=== PATIENT | male | born 1945 | race African-American/Black ===

== ENCOUNTER 2019-03-05 08:48 | Inpatient (IN) | payer OTHER ==
[2019-03-05] VITALS (8 sets, daily range): BP systolic 125–171; BP diastolic 65–83
[~2019-03-05] VITALS: Ht 185.4 cm; Wt 71.3 kg
--- NOTE | ~2019-03-05 | HC ---
[facility] [place] [address] CONSULTATION Name: AMOS SESAY Room #: 461-P [facility] IN M.R.#: [id number] Admission: 03/05/19 ������������������ Attend Phys: Oseas Lopez Discharge: 03/09/19 ������������������ Date of : 45 Report #: [id number] THIS REPORT FOR: //name// CC: FAM unknown Oseas Holt MD REQUESTING PHYSICIANS: Oseas Lopez MD and Cecil Holt MD CHIEF COMPLAINT: Hepatocellular carcinoma. HISTORY OF PRESENT ILLNESS: The patient initially presented to [facility] with altered mentation and GI bleed. The patient subsequently had an EGD confirming variceal bleeding and has had clipping to these. He did have a CT scan, which showed likely multifocal hepatocellular carcinoma. His AFP level was 28,000 as well. He has been seen by Oncology and unfortunately the patient is not an excellent candidate for treatment at this time. The patient's family has already discussed significantly and wished to pursue hospice. They are looking into long-term cares at this time, wished to discuss this with case management. The patient appears to be relatively comfortable currently according to nursing staff, although they do think that he may benefit from increased dosing of the pain medication that he has received. PAST MEDICAL HISTORY: Gastrointestinal bleed, esophageal varices, possible hepatocellular carcinoma, history of substance abuse, hepatitis C. MEDICATIONS: Thiamin, folate, B12, Protonix, octreotide, Ambien. ALLERGIES: No known drug allergies. FAMILY HISTORY: Noncontributory. SOCIAL HISTORY: Two daughters at least are present at my interview currently. REVIEW OF SYSTEMS: Unable to obtain due to present medical condition. PHYSICAL EXAMINATION: VITAL SIGNS: Temperature 36.6, pulse 91, respirations 20, blood pressure 138/76, 99% on room air. GENERAL: The patient only alerts to some stimuli, appears to be confused. Verbal responses are garbled at this time. CARDIOVASCULAR: Regular rate and rhythm currently. RESPIRATORY: Appears to be clear to auscultation anteriorly at least. ABDOMEN: Soft, mild distention. Diminished bowel sounds noted. LABORATORY DATA: Reviewed including AFP of 28,000. INR 1.2. [address] [address] CONSULTATION Name: AMOS SESAY Room #: 461-P [facility] IN M.R.#: [id number] Admission: 03/05/19 ������������������ Attend Phys: Oseas Lopez Discharge: 03/09/19 ������������������ Date of : 45 Report #: [id number] ASSESSMENT AND PLAN: Likely hepatocellular carcinoma. At this time, I have reviewed the consultation of Oncology and agree with their assessments. Certainly, if the patient is not to be an excellent candidate for any kind of treatment and given his other medical conditions, family has already desired to pursue a hospice or palliative care route, actually hospice exclusively, and they are looking into long-term cares currently. We will await their decision on long-term care placement. I did increase the hydrocodone to 7.5 mg every 4 hours p.r.n. Otherwise, he appears to be relatively comfortable at this time. Please contact me further if there are any questions regarding this consult or any further advice needed; however, it certainly appears that they have had significant discussion with regards to the plan going forward. ��������������������������������������������� ���������������������������������������� By: ��������������������������������������������� [id number] Josh Sorensen DO /nt
--- NOTE | ~2019-03-05 | HC ---
[facility] [place] [address] CONSULTATION Name: AMOS SESAY Room #: 212-P AD[facility] IN M.R.#: [id number] Admission: 03/05/19 ������������������ Attend Phys: Oseas Lopez Discharge: ������������������ Date of : 45 Report #: [id number] THIS REPORT FOR: //name// CC: FAM unknown Oseas Lopez DATE OF SERVICE: 03/05/2019 REASON FOR CONSULTATION: Elevated creatinine. REASON FOR PRESENTATION: Hematemesis. HISTORY OF PRESENT ILLNESS: A 73-year-old with extensive past medical history including hypertension, cirrhosis of the liver. No known previous kidney problems. He presented reporting hematemesis and melena. This was associated with abdominal pain. This has resulted in significant anemia on his presentation. His hemoglobin was 4.9. Apparently, the patient carries the diagnosis of cirrhosis of the liver. He sees somebody at the NH, but he had lost to follow up. When he presented yesterday, he was found to have significant ascites, anemia, liver masses, creatinine of 2.3. He also admits to ongoing marijuana usage, meth abuse, Vicodin, continuing alcohol abuse. He does not know of any previous kidney problems. I am being consulted to manage his kidney issues. Listed amongst his outpatient medication is meloxicam. MEDICATIONS: 1. Amlodipine. 2. Vitamin D. 3. Gabapentin. 4. Meloxicam. 5. Mirtazapine. 6. Paroxetine. PAST MEDICAL HISTORY: 1. Cirrhosis with all of its complications. 2. Hypertension. 3. Bipolar. 4. Substance abuse. FAMILY HISTORY: 1. Hypertension. 2. Smoking, significant for alcohol heavy abuse. 3. Drug abuse, positive for marijuana and meth. ALLERGIES: None. REVIEW OF SYSTEMS: [facility] [address] [place] [address] CONSULTATION Name: AMOS SESAY Room #: 212-P [facility] IN M.R.#: [id number] Admission: 03/05/19 ������������������ Attend Phys: Oseas Lopez Discharge: ������������������ Date of : 45 Report #: [id number] GENERAL: No fever or chills. He lost his appetite. CARDIOVASCULAR: No chest pain or palpitation. PULMONARY: No cough or hemoptysis. GASTROINTESTINAL: Significant for melena and hematemesis and abdominal pain and distention. MUSCULOSKELETAL: No back pain, no muscle pain. NEUROLOGICAL: No numbness, no tingling, no syncope. SKIN: No rash or ulcerations. HEMATOLOGICAL: No easy bruisability, no bleeding. PHYSICAL EXAMINATION: GENERAL: Thin, cachectic, emaciated. VITAL SIGNS: Blood pressure 141/81, temperature 36.9. HEAD AND NECK: No jugular venous distention. CHEST: Decreased air entry bilaterally. CARDIOVASCULAR: No rub detected. ABDOMEN: Distended. LOWER EXTREMITIES: No edema. LABORATORY VALUES: From yesterday revealed a sodium of 135, potassium of 3.4. AST is 557, ALT is 185. Creatinine was 2.3. Abdominal and pelvic CT revealed no obstructions, but significant cirrhosis and other findings as dictated. He has a large left renal cyst with small nonobstructing renal calculi. ASSESSMENT, IMPRESSION AND PLAN: 1. Acute kidney injury. 2. Ongoing liver issues including cirrhosis, substance abuse. 3. Gastrointestinal bleeding. 4. Ongoing liver mass issues on the CT. 5. We will send the appropriate acute kidney injury workup. 6. GI is following. 7. Continue IV fluid. 8. Watch hemoglobin. 9. Rule out obstructive uropathy. 10. Hold on any nephrotoxic medications and contrast for now. 11. We will see where his kidney numbers are going to stabilize. ��������������������������������������������� ���������������������������������������� By: ��������������������������������������������� [id number] Matthias Dalton MD /nt
[2019-03-05 09:16] LABS: MCH 32.8 pg (26.0-34.0); MCHC 32.1 g/dL (28.0-37.0); MCV 102.3 fL (80.0-100.0); PLATELET COUNT 181 thou/uL (150-400); RBC 1.48 mil/uL (4.50-6.00); RDW 23.4 % (10.5-14.5)
[2019-03-05 09:17] LABS: CALCIUM 8.4 mg/dL (8.5-10.1); CREATININE 2.3 mg/dL (0.7-1.3); POTASSIUM 3.4 mmol/L (3.5-5.1)
--- NOTE | 2019-03-05 09:23 | NUR ---
PT IS POIOIR HISTORIAN. VERBAL CONSENT BY PT TO OBTAIN MEDICAL RECORDS FROM CT. RELEASE FAXED.
[2019-03-05 09:25] LABS: HEMOGLOBIN 4.9 gm/dL (14.0-18.0)
[2019-03-05 09:26] LABS: HEMATOCRIT 15.2 % (42.0-52.0)
[2019-03-05 09:29] LABS: URINE BILIRUBIN NEGATIVE (Negative); URINE BLOOD NEGATIVE (Negative); URINE CLARITY CLEAR; URINE COLOR YELLOW; URINE GLUCOSE-RANDOM* NEGATIVE (Negative); URINE KETONES NEGATIVE (Negative); URINE LEUKOCYTES-REFLEX NEGATIVE (Negative); URINE NITRITE-REFLEX NEGATIVE (Negative); URINE PROTEIN (DIPSTICK) NEGATIVE (Negative); URINE SPECIFIC GRAVITY 1.015 (1.005-1.035)
[2019-03-05 09:31] LABS: ALBUMIN 1.7 g/dL (3.4-5.0); DIRECT BILIRUBIN 3.2 mg/dL (<0.1-0.3); TOTAL BILIRUBIN 5.1 mg/dL (<0.1-1.0); TOTAL PROTEIN 7.4 g/dL (6.4-8.2)
[2019-03-05 10:06] LABS: APTT 32.6 Seconds (24.5-32.8); INR 1.5; PROTIME 15.6 Seconds (9.3-11.4)
[2019-03-05 10:15] LABS: ABSOLUTE NEUTROPHILS 11.5 thou/uL (1.4-8.2); NUCLEATED RBCS 1 /100WBC; PLATELET ESTIMATE NORMAL
[2019-03-05 10:16] LABS: ANISOCYTOSIS 2+; HYPOCHROMASIA 2+; POLYCHROMASIA 1+
[2019-03-05 11:39] LABS: % SATURATION 13 % (20-39); IRON 29 ug/dL (65-175); TIBC 216 ug/dL (250-450)
[2019-03-05] MEDS ORDERED: TYLENOL EXTRA500 MG PO (11:51)
[2019-03-05] MEDS ORDERED: NORVASC10 MG PO (11:53)
[2019-03-05] MEDS ORDERED: CARVEDILOL12.5 MG PO (11:53)
[2019-03-05] MEDS ORDERED: VITAMIN D1000 UNI1 PO (11:54)
[2019-03-05] MEDS ORDERED: NEURONTIN 300M300 M2 PO (11:56)
[2019-03-05] MEDS ORDERED: HYDROCHLOROTHIA25 M2 PO (11:56)
[2019-03-05] MEDS ORDERED: MOBIC15 MG PO (11:56)
[2019-03-05] MEDS ORDERED: OMEPRAZOLE 20 M20 M1 PO (11:57)
[2019-03-05] MEDS ORDERED: REMERON15 MG PO (11:57)
[2019-03-05] MEDS ORDERED: FLOMAX0.4 MG PO (11:58)
[2019-03-05] MEDS ORDERED: PAXIL10 MG PO (11:58)
--- NOTE | 2019-03-05 13:38 | NUR ---
PT TO GI LAB
[2019-03-05 14:29] LABS: HEMATOCRIT 20.8 % (42.0-52.0)
[2019-03-05 14:30] LABS: HEMOGLOBIN 7.2 gm/dL (14.0-18.0)
--- NOTE | 2019-03-05 14:42 | NUR ---
PT TO GO TO INPT BED FROM GI LAB. REPORT GIVEN AND GI NOTIFIED.
--- NOTE | 2019-03-05 17:57 | NUR ---
PT ADMITED FROM GI LAB. ADMISSION HX AND ASSESSMENT COMPLETED. VSS. PT ORIENTED TO THE ROOM AND THE CALL LIGHT SYSTEM. FALL PRECAUTION IMPLEMENTED. WILL CONTINUE TO MONITOR.
[2019-03-05 19:07] LABS: IgG 2415 mg/dL (700-1600)
[2019-03-05 23:05] LABS: HAV IgM AB (ANTI-HAV IgM) Negative (Negative); HEPATITIS B SURFACE AG Negative (Negative); HEPATITIS C VIRUS AB >11.0 (0.0-0.9)
[2019-03-06] VITALS: BP 159/82
--- NOTE | 2019-03-06 04:50 | NUR ---
ASSUMED PT CARE AT 1900. PT A/O TO SELF, PLACE AND OCCASIONALLY TO SITUATION. NO COMPLAINTS OF PAIN THROUGH OUT SHIFT. VITAL SIGN STABLE, ASSESSMENT CHARTED. FREQUENT CHECKS, FALL PRECAUTIONS MAINTAINED. PT A BIT RESTLESS THROUGH THE NIGHT. NO ACUTE CHANGES THROUGH THE NIGHT. PROGRESSING TOWARD PLAN OF CARE, WILL CONTINUE TO MONITOR.
[2019-03-06 05:26] VITALS: BP 155/81
[2019-03-06 05:38] LABS: HEMATOCRIT 20.6 % (42.0-52.0); MCH 32.7 pg (26.0-34.0); MCHC 33.9 g/dL (28.0-37.0); RBC 2.14 mil/uL (4.50-6.00); RDW 22.4 % (10.5-14.5)
[2019-03-06 05:45] LABS: MCV 96.5 fL (80.0-100.0)
[2019-03-06 07:12] VITALS: BP 141/81
[2019-03-06 09:11] LABS: URINE BILIRUBIN 1+ (Negative); URINE BLOOD NEGATIVE (Negative); URINE CLARITY CLEAR; URINE COLOR YELLOW; URINE GLUCOSE-RANDOM* NEGATIVE (Negative); URINE KETONES NEGATIVE (Negative); URINE LEUKOCYTES NEGATIVE (Negative); URINE NITRITE NEGATIVE (Negative); URINE PROTEIN (DIPSTICK) NEGATIVE (Negative); URINE SPECIFIC GRAVITY 1.015 (1.005-1.035)
[2019-03-06 09:16] LABS: ICTOTEST (BILI CONFIRMATORY) Positive (Negative)
[2019-03-06 10:50] LABS: CALCIUM 7.6 mg/dL (8.5-10.1); CREATININE 1.8 mg/dL (0.7-1.3); POTASSIUM 3.7 mmol/L (3.5-5.1)
[2019-03-06 10:54] LABS: ALBUMIN 1.5 g/dL (3.4-5.0); PHOSPHORUS 3.1 mg/dL (2.5-4.9)
[2019-03-06 11:45] VITALS: BP 139/82
--- NOTE | 2019-03-06 13:40 | NUR ---
CONSULT CALLED TO DR. GARDUNO-DEALER SALES REP AND MESSAGE LEFT ON VOICEMAIL. MD CALLED BACK AND STATED THAT HE WILL SEE PATIENT UNLESS SOMETHING URGENT COMES UP AND IF SO TO CALL HIM BACK. PATIENT'S DIET ADVANCED TO SOFT DIET BY GI.
--- NOTE | 2019-03-06 15:07 | NUR ---
PATIENT ALERT AND ORIENTED BUT FORGETFUL AND RESTLESS. VITALS STABLE, MEDICATED FOR PAIN WITH PRN MEDS. INCONTINENT OF URINE AT TIMES AND OTHER TIMES ABLE TO USE THE URINAL. WAS ON CLEAR LIQUID DIET AND WAS ADVANCED TO SOFT BY GI DOCTOR AND TOLERATED WELL. NO BLOODY STOOL OR EMESIS NOTED. CONSULT FOR PEDIOTRIST CALLED AND DR. GARDUNO RETURNED CALL AND WILL SEE PATIENT ON THURSDAY 03/08. WILL CONTINUE TO MONITOR.
[2019-03-06 15:35] VITALS: BP 125/68
[2019-03-06 20:02] VITALS: BP 139/78
--- NOTE | 2019-03-07 03:20 | NUR ---
ASSUMED PT CARE AT 1900. PT A/O TO SELF, PLACE, SITUATION, VITAL SIGN STABLE, ASSESSMENT CHARTED. PT COMPLAINED OF GENERALIZED PAIN WHICH WAS ADEQAUTELY MANAGED WITH PAIN MEDICATION. FREQUENT CHECKS, FALL PRECAUTIONS MAINTAIMNED. PT RESTED WELL THROUGH THE NIGHT. WILL CONTINUE TO CLOSELY MONITOR.
[2019-03-07 05:07] VITALS: BP 152/72
[2019-03-07 05:24] LABS: HEMATOCRIT 21.2 % (42.0-52.0); HEMOGLOBIN 7.2 gm/dL (14.0-18.0); MCH 33.4 pg (26.0-34.0); MCHC 34.1 g/dL (28.0-37.0); RBC 2.16 mil/uL (4.50-6.00); RDW 22.1 % (10.5-14.5); WBC 10.6 thou/uL (4.0-11.0)
[2019-03-07 05:30] LABS: ALBUMIN 1.4 g/dL (3.4-5.0); CALCIUM 7.6 mg/dL (8.5-10.1); CREATININE 1.6 mg/dL (0.7-1.3); INR 1.2; POTASSIUM 3.8 mmol/L (3.5-5.1); TOTAL BILIRUBIN 6.7 mg/dL (<0.1-1.0); TOTAL PROTEIN 7.2 g/dL (6.4-8.2)
[2019-03-07 08:38] VITALS: BP 144/80
--- NOTE | 2019-03-07 15:35 | NUR ---
ASSESSMENT CHARTED. PT ALERT AND ORIENTED. VSS. RECEIVED PRN PAIN MED AND ANXIETY MED WITH PARTIAL RELIEF. SEEN BY DR. EDMONDSON. ORDERS GIVEN TO TRANSFER PT TO 461. PT AND FAMILY NOTIFIED. REPORT CALLED IN TO THE NURSE. NO CONCERN AT THIS TIME.
[2019-03-07 16:16] VITALS: BP 138/72
--- NOTE | 2019-03-07 19:47 | NUR ---
PATIENT TRANSFERRED FROM , REPORT FROM YAIMA/OLENA. PATIENT ALERT, HE DID OPEN HIS EYES, NO REPONSE VERBALLY. PATIENT HAS RIGHT FOREARM IV WITH NS AT 75CC/HR, PROTONIX 25ML/HR, AND OCTREOTIDE 10ML PER HR GOING. PATIENT IS TOTAL CARE, FEEDER, INCONT. OF B/B, LAST BM 03/05/19. DAUGHTER CAME TO CHECK ON THE PATIENT, HE DIDN'T RESPOND TO HER. REPORTED PATIENT ALERT TO SELF AND SITUATION. WILL CONTINUE TO MONITOR.
[2019-03-07 20:08] VITALS: BP 143/77
[2019-03-08 03:24] VITALS: BP 141/46
[2019-03-08 05:56] LABS: HEMATOCRIT 21.4 % (42.0-52.0); HEMOGLOBIN 7.2 gm/dL (14.0-18.0); MCH 33.7 pg (26.0-34.0); MCHC 33.8 g/dL (28.0-37.0); MCV 99.9 fL (80.0-100.0); RBC 2.14 mil/uL (4.50-6.00); RDW 23.1 % (10.5-14.5); WBC 10.4 thou/uL (4.0-11.0)
[2019-03-08 06:01] LABS: ALBUMIN 1.4 g/dL (3.4-5.0); CALCIUM 7.8 mg/dL (8.5-10.1); CREATININE 1.4 mg/dL (0.7-1.3); PHOSPHORUS 2.2 mg/dL (2.5-4.9); POTASSIUM 3.9 mmol/L (3.5-5.1)
[2019-03-08 08:00] VITALS: BP 138/76
--- NOTE | 2019-03-08 08:52 | NUR ---
PROGRESS PT SEDATED ON ARRIVAL TO MY SHIFT HAD DOSE OF HYDROCODONE AND ATIVAN AT NOON. VSS, IVF'S PROTONIX AND OCTREATIDE INFUSING ORDERED. ORAL CARE PROVIDED, REPOSITIONED TOLERATED. SLOWLY WOKE UP THROUGHOUT NIGHT ATE A CUP OF JELLO WITH ASSISTANCE DRANK 4 GLASSES OF WATER AND WAS ABLE TO OPEN EYES AND VERBALLY ANSWER QUESTIONS. INCONTINENT OF URINE X2 DTR AT BEDSIDE CONTINUE TO MONITOR.
[2019-03-08 10:09] LABS: ANA INTERPRETATION Positive (Negative); CERULOPLASMIN 22.7 mg/dL (16.0-31.0)
--- NOTE | 2019-03-08 14:31 | NUR ---
ASSESSMENT: CM REVIEWED CHART AND MET WITH PATIENT AND HIS BROTHER AND SISTER AT THE BEDSIDE. PTS DAUGHTERS WERE HERE AT THE HOSPITAL EARLIER BUT LEFT AND THEY ARE TRYING TO REACH THEM TO COME BACK OR TALK WITH CM WELL. PT DOES NOT CURRENTLY HAVE A DPOA BUT FAMILY IS PRESENT AND PT IS ALERT. PT STATES HE IS INTERESTED IN HOSPICE SERVICES. PT CURRENTLY LIVES IN A HOUSE WITH ROOMATES. PT DOES NOT FEEL HE IS ABLE TO GO BACK HOME AND NEITHER DOES FAMILY AND FEEL HE NEEDS 24/HR SUPERVISION WITH HOSPICE SERVICES. CM ASKED IF PATIENT HAD A PREFERENCE OF HOSPICE COMPANY AND CM COULD SEND REFERRAL FOR HOSPICE INFO VISIT. PT STATES HE HAS A FAMILY MEMBER THAT HAD A GREAT ONE BUT THEY CANNOT RECALL THE NAME AND ARE TRYING TO REACH FAMILY MEMBERS TO FIGURE IT OUT SO REFERRAL CAN BE SENT. CM DISCUSSED IF PT IS NOT ABLE TO RETURN HOME THEN THEY WOULD LIKELY HAVE TO PRIVATELY PAY LTC SOMEWHERE AT A FACILITY FOR PATIENT WITH HOSPICE SERVICES IN ADDITION TO THAT. CM DISCUSSED REFERRAL CAN BE SENT TO [facility] TO SEE IF PATIENT QUALIFIES FOR MEDICAID TO HELP WITH LTC, REFERRAL WAS SENT. CM DISCUSSED IF THEY HAD ANY INTEREST IN FACILITIES AND THEY HAD A FAMILY MEMBER AT [facility]. CM CONTACTED [facility] AND THEY HAVE NO CURRENT LTC BEDS AVAILABLE.
[2019-03-08 15:00] VITALS: BP 141/77
--- NOTE | 2019-03-09 04:46 | NUR ---
Pt. rested quietly at intervals during the night when checked on during frequent rounds. He became restless and po ativan given (see emar) with relief noted. Pt. also c/o pain to his leg and was given po pain med (see emar) with some relief noted. Incontinent of urine and gerson care given. Bed alarm is on.
[2019-03-09 05:23] VITALS: BP 141/69
[2019-03-09 08:34] VITALS: BP 135/77
[2019-03-09] MEDS ORDERED: ATIVAN1 MG PO (09:41)
[2019-03-09] MEDS ORDERED: NORCO 7.5-3251 EACH PO (09:41)
[2019-03-09] MEDS ORDERED: MIRALAX17 GM PO (09:41)
[2019-03-09] MEDS ORDERED: MSL20MG/ML PO (11:44)
--- NOTE | 2019-03-09 13:42 | NUR ---
HOSPICE ASSESSED PT FOR ADMISSION TO THE HOUSE AND DETERMINED THAT PT MET CRITERIA FOR ADMISSION. PHYSICIAN INDICATED THAT PT IS MEDICALLY STABLE TO DC TO [facility] TODAY. CM ARRANGED [facility] AND THEY ARRIVED AT 1330. OUT OF THE HOSPITAL DNR FORM SIGNED. ORDERS FAXED TO [facility]. NURSE HAS NUMBER TO CALL REPORT. PT'S DTR IS AWARE AND AGREEABLE. NO OTHER CM INTERVENTION INDICATED. CASE CLOSED.
--- NOTE | 2019-03-09 20:58 | NUR ---
PT DISCHARGED TO HOSPICE HOUSE. IV IN LEFT FOREARM LEFT IN PLACE PER FACILITY INSTRUCTIONS. ALL BELONGINGS WITH PATIENT. FAMILY AT BEDSIDE AND TRANSFERED WITH PATIENT. NO SIGNS OF DISTRESS, VITALS STABLE. DISCHARGE PAPERWORK SENT TO FACILITY.
--- NOTE | 2019-03-10 08:09 | HC ---
[facility] [place] [address] CONSULTATION Name: AMOS SESAY Room #: 461-P [facility] IN M.R.#: [id number] Admission: 03/05/19 ������������������ Attend Phys: Oseas Lopez Discharge: 03/09/19 ������������������ Date of : 45 Report #: [id number] THIS REPORT FOR: //name// CC: FAM unknown Oseas Lopez DATE OF SERVICE: 03/08/2019 INTRODUCTION: The patient is a 73-year-old male who was admitted to [facility] with a GI bleed and diagnosis of hepatic carcinoma. He is in generally failing health. He is being seen today for care of his feet as he has toenails that have not been attended to for over a year. Remainder of past medical history with regard to this condition is unremarkable. The patient has multiple health issues and is currently being assessed for hospice placement. Pedal exam, dorsalis pedis, posterior tibial pulses graded at 1/4, capillary refill time is within normal limits. The patient has moderate lower extremity edema. Neurologically, the patient has arrhythmic spasm of the right foot and leg and is lying in a contracted position with both knees bent. He is not communicative at this time. Dermatologic exam reveals no ulcerations, skin breakdowns, or infections. Nails are severely elongated, thickened, clinically consistent with onychomycosis. Both hallux toenails are over 5 cm long. These nails were carefully debrided. There is no additional underlying pathology noted. IMPRESSION: Onychomycosis with a generally poor foot hygiene. PLAN: The patient's nails were debrided as mentioned. No additional treatment was required. It has been a pleasure having the opportunity of caring for the patient. I would be pleased to follow up with him upon request. ��������������������������������������������� <ELECTRONICALLY SIGNED> ���������������������������������������� By: Manuel Partida DPM ��������������������������������������������� 03/10/19 [id number] Manuel Partida DPM /nt
== END 2019-03-09 13:45 | disposition hospice, home (50) | DRG 432 ==
LOC: ER 08:48 → EROBS 11:25 → 2N 11:25 → 4W 11:25 → EROBS 14:43 → 2N 15:01 → 4W 03-07 16:00
PROVIDERS: Emergency Medicine; Hospitalist; Internal Medicine; Nurse Practitioner; ADMIT Hospitalist
PROC: 06L38CZ Occlusion of Esophageal Vein with Extraluminal Device, Via Natural or Artificial Opening Endoscopic (ICD-10-PCS; principal; 2019-03-05)
PROC: 30233N1 Transfusion of Nonautologous Red Blood Cells into Peripheral Vein, Percutaneous Approach (ICD-10-PCS; principal; 2019-03-05)
PROC: 0HBRXZZ Excision of Toe Nail, External Approach (ICD-10-PCS; 2019-03-08)
DX: K70.31 Alcoholic cirrhosis of liver with ascites (principal); N17.0 Acute kidney failure with tubular necrosis; E43 Unspecified severe protein-calorie malnutrition; I85.11 Secondary esophageal varices with bleeding; D62 Acute posthemorrhagic anemia; K76.6 Portal hypertension; D68.9 Coagulation defect, unspecified; C78.7 Secondary malignant neoplasm of liver and intrahepatic bile duct; F31.9 Bipolar disorder, unspecified; K52.9 Noninfective gastroenteritis and colitis, unspecified; I10 Essential (primary) hypertension; Z51.5 Encounter for palliative care; B35.1 Tinea unguium; B19.20 Unspecified viral hepatitis C without hepatic coma; K44.9 Diaphragmatic hernia without obstruction or gangrene; R16.0 Hepatomegaly, not elsewhere classified; K31.89 Other diseases of stomach and duodenum; F10.10 Alcohol abuse, uncomplicated; K70.11 Alcoholic hepatitis with ascites; K62.89 Other specified diseases of anus and rectum; K80.20 Calculus of gallbladder without cholecystitis without obstruction; F17.210 Nicotine dependence, cigarettes, uncomplicated; Z68.20 Body mass index [BMI] 20.0-20.9, adult; Z79.899 Other long term (current) drug therapy; Z82.49 Family history of ischemic heart disease and other diseases of the circulatory system; Z81.1 Family history of alcohol abuse and dependence; Z81.3 Family history of other psychoactive substance abuse and dependence; Z81.2 Family history of tobacco abuse and dependence
CPT/HCPCS: 10047; 10081; 62110; 62900; 70005